=== PATIENT | male | born 2000 | race Caucasian/White ===

== ENCOUNTER 2022-01-11 16:30 | Emergency (ER) | payer MEDICAID ==
[~2022-01-11] VITALS: Ht 157.5 cm; Wt 58.8 kg
[2022-01-11] MEDS ORDERED: HYDR-3421 PO (16:45)
[2022-01-11] MEDS ORDERED: SERT-158 PO (16:45)
[2022-01-11 19:49] VITALS: BP 118/65
== END 2022-01-11 19:54 | disposition home or self-care (01) ==
LOC: EMS 16:36
DX: F41.9 Anxiety disorder, unspecified (principal); F32.9 Major depressive disorder, single episode, unspecified; T50.905A Adverse effect of unspecified drugs, medicaments and biological substances, initial encounter; Y92.9 Unspecified place or not applicable
CPT/HCPCS: 99282; Z7502